=== PATIENT | male | born 1980 | race African-American/Black ===

== ENCOUNTER 2017-08-24 03:35 | Emergency (ER) | payer SELFPAY ==
[2017-08-24 05:10] LABS: BILIRUBIN,URINE NEGATIVE (NEG); CLARITY,URINE CLEAR; COLOR,URINE AMBER; GLUCOSE,URINE NEGATIVE (NEG); NITRITE,URINE NEGATIVE (NEG); PROTEIN,URINE NEGATIVE (NEG-TRACE)
[2017-08-24 05:25] LABS: BACTERIA,URINE 0 /HPF (0-FEW); RBC,URINE 0 /HPF (0-2); SQUAMOUS EPITHELIAL CELL,UR FEW /LPF; WBC,URINE 0 /HPF (0-4)
== END 2017-08-24 05:52 | disposition home or self-care (01) ==
LOC: ER 03:35
DX: N48.29 Other inflammatory disorders of penis (principal); I10 Essential (primary) hypertension; N43.3 Hydrocele, unspecified
CPT/HCPCS: 76870; 81001; 99285-25

== ENCOUNTER 2019-05-17 19:05 | Emergency (ER) | payer BC ==
[~2019-05-17] VITALS: Ht 185.4 cm; Wt 103.0 kg
[2019-05-17 19:50] LABS: BASO % 1 % (0-3); EOS % 1 % (0-3); HEMATOCRIT 42.3 % (39.0-53.0); LYMPH # 2.3 x10^3/uL (1.0-4.8); LYMPH % 33 % (24-48); MEAN CORPUSCULAR HEMOGLOBIN 34 pg (25-35); MEAN CORPUSCULAR HGB CONC 35 g/dL (31-37); MEAN CORPUSCULAR VOLUME 97 fL (79-100); MONO # 0.8 x10^3/uL (0.0-1.1); MONO % 12 % (0-9); NEUT # 3.7 x10^3/uL (1.8-7.7); NEUT % 54 % (31-73); PLATELET COUNT 252 x10^3/uL (140-400); RED BLOOD COUNT 4.36 x10^6/uL (4.30-5.70); RED CELL DISTRIBUTION WIDTH 12.2 % (11.5-14.5); WHITE BLOOD COUNT 6.8 x10^3/uL (4.0-11.0)
[2019-05-17] MEDS ORDERED: ACETAMINOPHEN 500 MG TABLET PO ONE (20:00)
[2019-05-17] MEDS ORDERED: IV NORMAL SALINE 1000ML BAG 1,000 ML IV ONE (20:00)
[2019-05-17 20:04] LABS: CALCIUM 9.4 mg/dL (8.5-10.1); CREATININE 0.8 mg/dL (0.7-1.3); GFR 128.9; POTASSIUM 3.7 mmol/L (3.5-5.1)
[2019-05-17 20:09] LABS: ALBUMIN 4.1 g/dL (3.4-5.0); ALBUMIN/GLOBULIN RATIO 0.8 (1.0-1.7); MAGNESIUM 1.4 mg/dL (1.8-2.4); TOTAL BILIRUBIN 1.6 mg/dL (0.2-1.0)
[2019-05-17] MEDS ORDERED: MAGNESIUM CHLORIDE ER 64 MG TABLET.ER PO STA (20:21)
--- NOTE | 2019-05-17 20:24 | RAD ---
Single view chest dated 05/17/2019: No comparison available. Clinical Indication: Shortness of breath. Findings: Single upright portable exam of the chest was performed. Heart size and mediastinal contours are within normal limits given technique. The lungs are clear without evidence of focal consolidation. Vascular interstitium is within normal limits. Impression:: Negative portable chest. Electronically signed by: Barak Madrigal MD (05/17/2019 8:21 PM) [facility]
--- NOTE | 2019-05-17 20:32 | PHYS DOC ---
Past Medical History Past Medical History: Anxiety, Hypertension Past Surgical History: No Surgical History Alcohol Use: Occasionally Drug Use: None Adult General Chief Complaint Chief Complaint: RAPID HEART RATE HPI HPI Patient is a 39 year old male who presents with rapid heart rate. He is a heavy drinker he drinks at least 4 beers a day if not more he has felt his heart racing intermittently for the last several days now. He has not drink in over 24 hours she has trouble with insomnia he also has issues with blood pressure he just got put on nifedipine recently he is also send a Proventil he denies other drug use no chest pain just early no shortness of breath either just sometimes feels like her heart is racing he does have anxiety and stress with work as well In the emergency room heart rate initially was 125 it came down to 108-109 after IV fluids and Ativan he said he was feeling much better I reevaluated him and he looked much better too blood pressure 154/84 at 2013 Review of Systems Review of Systems Constitutional: Denies fever or chills [] Eyes: Denies change in visual acuity, redness, or eye pain [] HENT: Denies nasal congestion or sore throat [] R Musculoskeletal: Denies back pain or joint pain [] Integument: Denies rash or skin lesions [] Neurologic: Denies headache, focal weakness or sensory changes [] Endocrine: Denies polyuria or polydipsia [] All other systems were reviewed and found to be within normal limits, except as documented in this note. Current Medications Current Medications Current Medications Medications (Trade) Dose Ordered Sig/Mona Start Time Stop Time Status Last Admin Dose Admin Acetaminophen (Tylenol) 1,000 mg 1X ONCE 05/17/19 20:00 05/17/19 20:01 DC 05/17/19 20:04 1,000 MG Lorazepam (Ativan Inj) 2 mg 1X ONCE 05/17/19 20:00 05/17/19 20:01 DC 05/17/19 20:05 2 MG Magnesium Chloride (Mag Delay) 64 mg 1X STAT 05/17/19 20:21 05/17/19 20:22 UNV Sodium Chloride 1,000 ml @ 1,000 mls/hr 1X ONCE 05/17/19 20:00 05/17/19 20:59 05/17/19 20:04 1,000 MLS/HR Allergies Allergies Allergies Coded Allergies Type Severity Reaction Last Updated Verified No Known Drug Allergies 05/17/19 No Physical Exam Physical Exam Constitutional: Well developed, well nourished, no acute distress, non-toxic appearance. [] HENT: Normocephalic, atraumatic, bilateral external ears normal, oropharynx moist, no oral exudates, nose normal. [] Eyes: PERRLA, EOMI, conjunctiva normal, no discharge. [] Neck: Normal range of motion, no tenderness, supple, no stridor. [] Cardiovascular: Mild tachycardia no murmurs noted Lungs & Thorax: Bilateral breath sounds clear to auscultation [] Abdomen: Bowel sounds normal, soft, no tenderness, no masses, no pulsatile masses. [] Skin: Warm, dry, no erythema, no rash. [] Back: No tenderness, no CVA tenderness. [] Extremities: No tenderness, no cyanosis, no clubbing, ROM intact, no edema. [] Neurologic: Alert and oriented X 3, normal motor function, normal sensory function, no focal deficits noted. [] Psychologic: Affect normal, judgement normal, mood normal. [] Current Patient Data Vital Signs Vital Signs Date Time Temp Pulse Resp B/P (MAP) Pulse Ox O2 Delivery O2 Flow Rate FiO2 05/17/19 19:12 98.3 117 23 179/90 (119) 98 Room Air 98.3 Lab Values Laboratory Tests Test 05/17/19 19:23 White Blood Count 6.8 x10^3/uL (4.0-11.0) Red Blood Count 4.36 x10^6/uL (4.30-5.70) Hemoglobin 15.0 g/dL (13.0-17.5) Hematocrit 42.3 % (39.0-53.0) Mean Corpuscular Volume 97 fL (79-100) Mean Corpuscular Hemoglobin 34 pg (25-35) Mean Corpuscular Hemoglobin Concent 35 g/dL (31-37) Red Cell Distribution Width 12.2 % (11.5-14.5) Platelet Count 252 x10^3/uL (140-400) Neutrophils (%) (Auto) 54 % (31-73) Lymphocytes (%) (Auto) 33 % (24-48) Monocytes (%) (Auto) 12 % (0-9) H Eosinophils (%) (Auto) 1 % (0-3) Basophils (%) (Auto) 1 % (0-3) Neutrophils # (Auto) 3.7 x10^3/uL (1.8-7.7) Lymphocytes # (Auto) 2.3 x10^3/uL (1.0-4.8) Monocytes # (Auto) 0.8 x10^3/uL (0.0-1.1) Eosinophils # (Auto) 0.0 x10^3/uL (0.0-0.7) Basophils # (Auto) 0.0 x10^3/uL (0.0-0.2) Sodium Level 134 mmol/L (136-145) L Potassium Level 3.7 mmol/L (3.5-5.1) Chloride Level 95 mmol/L (98-107) L Carbon Dioxide Level 29 mmol/L (21-32) Anion Gap 10 (6-14) Blood Urea Nitrogen 8 mg/dL (8-26) Creatinine 0.8 mg/dL (0.7-1.3) Estimated GFR (Cockcroft-Gault) 128.9 BUN/Creatinine Ratio 10 (6-20) Glucose Level 124 mg/dL (70-99) H Calcium Level 9.4 mg/dL (8.5-10.1) Magnesium Level 1.4 mg/dL (1.8-2.4) L Total Bilirubin 1.6 mg/dL (0.2-1.0) H Aspartate Amino Transferase (AST) 39 U/L (15-37) H Alanine Aminotransferase (ALT) 24 U/L (16-63) Alkaline Phosphatase 76 U/L (46-116) Troponin I Quantitative < 0.017 ng/mL (0.000-0.055) Total Protein 9.0 g/dL (6.4-8.2) H Albumin 4.1 g/dL (3.4-5.0) Albumin/Globulin Ratio 0.8 (1.0-1.7) L Thyroid Stimulating Hormone (TSH) 5.715 uIU/mL (0.358-3.74) H Ethyl Alcohol Level < 10 mg/dL (0-10) Laboratory Tests 05/17/19 19:23 Laboratory Tests 05/17/19 19:23 EKG EKG []Sinus tach rate 124 no acute ischemic changes noted QTC 435 interpreted by me at the time of encounter Radiology/Procedures Radiology/Procedures [] Impressions: dings: Single upright portable exam of the chest was performed. Heart size and mediastinal contours are within normal limits given technique. The lungs are clear without evidence of focal consolidation. Vascular interstitium is within normal limits. Impression:: Negative portable chest. Electronically signed by: Barak Madrigal MD (05/17/2019 8:21 PM) [facility] DICTATED and SIGNED BY: BARAK MADRIGAL MD DATE: 05/17/192020 Course & Med Decision Making Course & Med Decision Making Pertinent Labs and Imaging studies reviewed. (See chart for details) []Lab interpretation magnesium was a little low TSH was actually a little high for that would not explain the symptoms. Magnesium was repleted. In summary this is a 39-year-old male with history of heavy alcohol use as well as hypertension presenting with heart palpitations that have sinus tachycardia likely related to alcohol effect as well as stress TSH was a little high recommended follow-up for this likely not the etiology of his symptoms today. Prescription for Librium will be provided return precautions discussed follow-up with doctor next week for recheck I think is okay for discharge home Dragon Disclaimer Dragon Disclaimer This electronic medical record was generated, in whole or in part, using a voice recognition dictation system. Departure Departure Impression: Primary Impression: Sinus tachycardia Disposition: HOME, SELF-CARE Condition: STABLE Referrals: NO PCP (PCP) KALEIGH DANIEL MD May 17, 2019 20:32
[2019-05-17] MEDS ORDERED: LORA2TAB89 PO (20:34)
[2019-05-17 20:43] VITALS: BP 152/83
--- NOTE | 2019-05-18 06:08 | EKG ---
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
== END 2019-05-17 20:57 | disposition home or self-care (01) ==
LOC: ER 19:05
DX: R00.0 Tachycardia, unspecified (principal); I10 Essential (primary) hypertension; F41.9 Anxiety disorder, unspecified
CPT/HCPCS: 36415; 71045; 80053; 83735; 84443; 84484; 85025; 93005; 96374; 99285; G0480; J2060; J7030

== ENCOUNTER 2021-03-13 13:28 | Emergency (ER) | payer BC ==
[~2021-03-13] VITALS: Ht 185.4 cm; Wt 104.5 kg
[~2021-03-13 13:28] MED LIST: LORA2TAB89 PO
--- NOTE | 2021-03-13 14:07 | PHYS DOC ---
Past Medical History Past Medical History: Anxiety, Hypertension Additional Past Medical Histor: "RACING HEART" Past Surgical History: No Surgical History Smoking Status: Never Smoker Alcohol Use: Occasionally Drug Use: None General Adult EDM: Chief Complaint: Palpitations HPI: HPI: Patient is a 40 year old male presents the emergency department complaining of chest palpitations, patient states she was seen at urgent care a month ago and was told that his palpitations are from anemia, patient states that they have not gone away since. Patient states he does not have a primary care physician but does go to a local clinic. Patient denies smoking cigarettes, states he does drink alcohol occasionally last beer was 3 days ago, denies any illicit drug use. Patient states she does take lisinopril and metoprolol for blood pressure at home. Patient denies chest pain, chest congestion or cough, recent fever chills, nausea, vomiting, or diarrhea. Patient denies any other physical complaints or physical concerns. Review of Systems: Review of Systems: 14 body systems of review of systems have been reviewed. See HPI for pertinent positives and negative responses, otherwise all other systems are negative, nonpertinent or noncontributory. Constitutional: Negative except as outlined in HPI above. Skin: Negative except as outlined in HPI above. Eyes: Negative except as outlined in HPI above. HENT: Negative except as outlined in HPI above. Respiratory: Negative except as outlined in HPI above. Cardiovascular: Negative except as outlined in HPI above. GI: Negative except as outlined in HPI above. : Negative except as outlined in HPI above. Musculoskeletal: Negative except as outlined in HPI above. Integument: Negative except as outlined in HPI above. Neurologic: Negative except as outlined in HPI above. Endocrine: Negative except as outlined in HPI above. Lymphatic: Negative except as outlined in HPI above. Psychiatric: Negative except as outlined in HPI above. Heart Score: C/O Chest Pain: No Risk Factors: Risk Factors: DM, Current or recent (<one month) smoker, HTN, HLP, family history of CAD, obesity. Risk Scores: Score 0 - 3: 2.5% MACE over next 6 weeks - Discharge Home Score 4 - 6: 20.3% MACE over next 6 weeks - Admit for Clinical Observation Score 7 - 10: 72.7% MACE over next 6 weeks - Early Invasive Strategies Allergies: Allergies: Allergies Coded Allergies Type Severity Reaction Last Updated Verified No Known Drug Allergies 05/17/19 No Physical Exam: PE: Constitutional: Well developed, well nourished, no acute distress, non-toxic appearance. 40-year-old male in no apparent distress. HENT: Normocephalic, atraumatic. Eyes: Conjunctiva normal, no discharge. Neck: Normal range of motion, no stridor. Cardiovascular: No cyanosis appreciated, distal cap refill less than 2 seconds. Heart sounds S1-S2, tachycardic heart rate during examination. Lungs & Thorax: Patient is in no respiratory distress, no audible adventitious lung sounds appreciated. Lung sounds clear to auscultate all lung wild. Abdomen: Nontender, no abnormalities noted. Skin: Warm, dry, no erythema, no rash. Back: No tenderness, no deformities. Extremities: No tenderness, no cyanosis, no clubbing, ROM intact, no edema. Neurologic: Alert and oriented X 3, normal motor function, normal sensory function, no focal deficits noted. Psychologic: Affect normal, judgement normal, mood normal. Current Patient Data: Vital Signs: Vital Signs Date Time Temp Pulse Resp B/P (MAP) Pulse Ox O2 Delivery O2 Flow Rate FiO2 03/13/21 13:38 98.8 115 20 127/88 (106) 99 Room Air 98.8 EKG: EKG: EKG performed at 1337 by ED nursing staff shows heart rate 119 bpm sinus tachycardia without other ectopy, [place] interval 0.116, QTc interval 0.414, no acute STEMI, no ACS, no acute ischemia appreciated, EKG interpreted by ED attending physician Dr. Ibrahim. Radiology/Procedures: Radiology/Procedures: PATIENT: LATONYA CALDWELL ACCOUNT: [id number] : 1980 LOCATION: ER AGE: 40 SEX: M EXAM STATUS: PRE ER ORD. PHYSICIAN: AUGIE LEMUS APRN REASON: chest pain PROCEDURE: CHEST AP ONLY INDICATION: Reason: chest pain / Spl. Instructions: / History: COMPARISON: April 2019 FINDINGS: Single view of chest obtained. Cardiac silhouette is similar to prior. No definite new region of focal consolidation or edema. No gross osseous destructive lesion. IMPRESSION: * No focal airspace consolidation. Electronically signed by: Westley Rebolledo MD (03/13/2021 3:06 PM) [id number] DICTATED and SIGNED BY: WESTLEY REBOLLEDO MD DATE: 03/13/21 [id number] Course & Med Decision Making: Course & Med Decision Making Pertinent Labs and Imaging studies reviewed. (See chart for details) 38-year-old male, vital signs reviewed, presents emergency department complaining of chest palpitations over the past month. Physical examination was unremarkable, a cardiorespiratory work-up was initiated. After period of time reexamination of patient and further investigation of tachycardia, patient does reveal he is an alcoholic, had actually quit drinking 3 days ago and has had palpitations today. Discussed with patient symptoms most likely alcohol withdrawal, will order banana bag and Ativan. After period of time, patient heart rate below 100, discussed with patient drinking cessation, patient states he does want to stop but will seek care outside of the ER. Discussed with patient strict follow-up with primary care for ongoing treatment of drinking cessation, strict return to ER precautions. Discuss with the patient all findings and diagnostic testing as well as the need to follow-up with their primary care provider for further evaluation and treatment or return to the ED if any new or worsening symptoms. Strict return precautions were also discussed at length, the patient voiced understanding and agreement with the discharge planning. The patient was nontoxic in appearance, in no apparent distress, and hemodynamically stable at the time of disposition. Dragon Disclaimer: Dragon Disclaimer: This electronic medical record was generated, in whole or in part, using a voice recognition dictation system. Departure Departure Impression: Primary Impression: Heart palpitations Additional Impressions: Alcoholism Alcohol withdrawal syndrome Qualified Codes: F10.230 - Alcohol dependence with withdrawal, uncomplicated Disposition: 01 HOME / SELF CARE / HOMELESS Condition: GOOD Referrals: NO PCP (PCP) Patient Instructions: Alcohol Withdrawal Additional Instructions: You were seen today in the emergency department for increased heart rate, you were worried about anemia, there were no signs of anemia. As we discussed your symptoms are related to your alcohol withdrawal syndrome. As we discussed please follow-up with your primary care physician for ongoing treatment and help with alcohol cessation. Thank you for visiting our Emergency Department. It was a pleasure taking care of you today in the emergency department and we appreciate you trusting us with your care. If any additional problems come up don't hesitate to return to visit us. Please follow up with your primary care provider so they can plan additional care if needed and know about the problem that you had. If symptoms worsen come back to the Emergency Department. Any concerning symptoms that start such as chest pain, shortness of air, weakness or numbness on one side of the body, running high fevers or any other concerning symptoms return to the ER. EMERGENCY DEPARTMENT GENERAL DISCHARGE INSTRUCTIONS Thank you for coming to [facility] Emergency Department (ED) today and trusting us with you care. We trust that you had a positive experience in our Emergency Department. If you wish to speak to the department management, you may call the Director at [phone]. YOUR FOLLOW UP INSTRUCTIONS ARE FOLLOWS: 1. Do you have a private Doctor? If you do not have a private doctor, please ask for a resource list of physicians or clinics that may be able to assist you with follow up care. 2. The Emergency Physicain has interpreted your x-rays. The X-Ray specialist will also review them. If there is a change in the findings, you will be notified in 48 hours when at all possible. 3. A lab test or culture has been done, your results will be reviewed and you will be notified if you need a change in treatment. ADDITIONAL INSTRUCTIONS AND INFORMATION: 1. Your care today has been supervised by a physician who is specially trained in emergency care. Many problems require more than one evaluation for a complete diagnosis and treatment. We recommend that you schedule your follow up appointment as recommended to ensure complete treatment of you illness or injury. If you are unable to obtain follow up care and continue to have a problem, or if your condition worsens, we recommend that you return to the ED. 2. We are not able to safely determine your condition over the phone nor are we able to give sound medical advice over the phone. For these safety reasons, if you call for medical advice we will ask you to come to the ED for further evaluation. 3. If you have any questions regarding these discharge instructions please call the ED at [phone]. SAFETY INFORMATION: In the interest of safety, wellness, and injury prevention; we encourage you to wear your sealbelt, if you smoke; quite smoking, and we encourage family to use a protective helmet for bicycling and other sporting events that present an increased risk for head injury. IF YOUR SYMPTOMS WORSEN OR NEW SYMPTOMS DEVELOP, OR YOU HAVE CONCERNS ABOUT YOUR CONDITION; OR IF YOUR CONDITION WORSENS WHILE YOU ARE WAITING FOR YOUR FOLLOW UP APPOINTMENT; EITHER CONTACT YOUR PRIMARY CARE DOCTOR, THE PHYSICIAN WHOSE NAME AND NUMBER YOU WERE GIVEN, OR RETURN TO THE ED IMMEDIATELY. AUGIE LEMUS APRN Mar 13, 2021 14:07
[2021-03-13 14:41] LABS: BASO % 0 % (0-3); EOS % 0 % (0-3); HEMATOCRIT 43.6 % (39.0-53.0); HEMOGLOBIN 15.3 g/dL (13.0-17.5); LYMPH # 2.1 x10^3/uL (1.0-4.8); LYMPH % 25 % (24-48); MEAN CORPUSCULAR HEMOGLOBIN 35 pg (25-35); MEAN CORPUSCULAR HGB CONC 35 g/dL (31-37); MEAN CORPUSCULAR VOLUME 99 fL (79-100); MONO # 0.9 x10^3/uL (0.0-1.1); MONO % 10 % (0-9); NEUT # 5.6 x10^3/uL (1.8-7.7); NEUT % 65 % (31-73); PLATELET COUNT 336 x10^3/uL (140-400); RED BLOOD COUNT 4.41 x10^6/uL (4.30-5.70); RED CELL DISTRIBUTION WIDTH 12.1 % (11.5-14.5); WHITE BLOOD COUNT 8.6 x10^3/uL (4.0-11.0)
[2021-03-13 14:51] LABS: CALCIUM 9.1 mg/dL (8.5-10.1); CREATININE 1.2 mg/dL (0.7-1.3); GFR 80.3; POTASSIUM 4.2 mmol/L (3.5-5.1)
[2021-03-13 14:57] LABS: ALBUMIN 3.7 g/dL (3.4-5.0); ALBUMIN/GLOBULIN RATIO 0.8 (1.0-1.7); TOTAL BILIRUBIN 1.3 mg/dL (0.2-1.0); TOTAL PROTEIN 8.6 g/dL (6.4-8.2)
--- NOTE | 2021-03-13 15:08 | RAD ---
INDICATION: Reason: chest pain / Spl. Instructions: / History: COMPARISON: April 2019 FINDINGS: Single view of chest obtained. Cardiac silhouette is similar to prior. No definite new region of focal consolidation or edema. No gross osseous destructive lesion. IMPRESSION: * No focal airspace consolidation. Electronically signed by: Ramon Adams MD (03/13/2021 3:06 PM) [id number]
[2021-03-13] MEDS ORDERED: IV NORMAL SALINE 1000ML BAG 1,000 ML IV ONE (15:30)
--- NOTE | 2021-03-13 15:35 | EKG ---
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
[2021-03-13] MEDS ORDERED: MULTIVIT INFUSN,ADULT 4,VIT K 10 ML, THIAMINE INJ 100 MG, FOLIC ACID INJ 1 MG in IV NOR... IV ONE (16:00)
[2021-03-13 18:06] VITALS: BP 140/90
== END 2021-03-13 19:27 | disposition home or self-care (01) ==
LOC: ER 13:28
DX: F10.230 Alcohol dependence with withdrawal, uncomplicated (principal); R00.2 Palpitations; F41.9 Anxiety disorder, unspecified; I10 Essential (primary) hypertension; Y90.9 Presence of alcohol in blood, level not specified
CPT/HCPCS: 36415; 71045; 80053; 84484; 85025; 93005; 96365; 96366; 99285; J3411; J3490; J7030

== ENCOUNTER 2021-10-24 04:47 | Emergency (ER) | payer BC ==
[~2021-10-24] VITALS: Ht 185.4 cm; Wt 104.5 kg
[2021-10-24] MEDS ORDERED: IV NORMAL SALINE 1000ML BAG 1,000 ML IV ONE ×2 (06:15→06:45)
[2021-10-24 06:35] LABS: BASO % 0 % (0-3); EOS % 0 % (0-3); HEMATOCRIT 43.4 % (39.0-53.0); LYMPH # 2.4 x10^3/uL (1.0-4.8); LYMPH % 29 % (24-48); MEAN CORPUSCULAR HEMOGLOBIN 32 pg (25-35); MEAN CORPUSCULAR HGB CONC 35 g/dL (31-37); MEAN CORPUSCULAR VOLUME 93 fL (79-100); MONO # 0.7 x10^3/uL (0.0-1.1); MONO % 8 % (0-9); NEUT # 5.3 x10^3/uL (1.8-7.7); NEUT % 63 % (31-73); PLATELET COUNT 359 x10^3/uL (140-400); RED BLOOD COUNT 4.68 x10^6/uL (4.30-5.70); RED CELL DISTRIBUTION WIDTH 12.8 % (11.5-14.5); WHITE BLOOD COUNT 8.5 x10^3/uL (4.0-11.0)
[2021-10-24 06:43] LABS: CALCIUM 9.9 mg/dL (8.5-10.1); CREATININE 0.8 mg/dL (0.7-1.3); GFR 127.7; POTASSIUM 3.2 mmol/L (3.5-5.1)
[2021-10-24 06:58] LABS: ALBUMIN 3.9 g/dL (3.4-5.0); ALBUMIN/GLOBULIN RATIO 0.8 (1.0-1.7); TOTAL BILIRUBIN 1.4 mg/dL (0.2-1.0); TOTAL PROTEIN 9.1 g/dL (6.4-8.2)
--- NOTE | 2021-10-24 07:00 | RAD ---
EXAM: XR CHEST 1V 10/24/2021 6:32 AM CLINICAL INDICATION: Tachycardia COMPARISON: Chest radiograph 03/13/2021 TECHNIQUE: AP upright view of the chest FINDINGS: The heart and mediastinum are normal. Lungs are well-expanded and clear. No consolidatio n, pleural effusion, or pneumothorax. Pulmonary vascularity is normal. The thoracic skeleton is int act. IMPRESSION: Normal chest radiograph. Electronically signed by: Radha Garcia MD (10/24/2021 6:58 AM) [facility]
--- NOTE | 2021-10-24 07:01 | PHYS DOC ---
Past Medical History Past Medical History: Anxiety, Hypertension Additional Past Medical Histor: "RACING HEART" Past Surgical History: No Surgical History Smoking Status: Never Smoker Alcohol Use: Occasionally Drug Use: None Adult General Chief Complaint Chief Complaint: HYPERTENSION HPI HPI The patient is a 41-year-old male with a history of alcohol abuse who presents for evaluation of high blood pressure, rapid heart rate and insomnia. Patient states he could not sleep at all overnight and noticed that his heart was racing. Associated nausea with 1 episode of nonbloody vomiting. No associated fevers, upper respiratory congestion/rhinorrhea, cough, sore throat, shortness of breath or chest pain of any kind, abdominal pain of any kind, flank pain, midline back pain, dysuria, hematuria, polyuria or oliguria, changes in bowel habits. Patient is alert and pleasantly and appropriately interactive and in no acute distress. He is not obviously tremulous. He denies use of any substances aside from alcohol. Review of Systems Review of Systems A 12 point review of systems was completed and was negative except where noted in HPI above. Current Medications Current Medications Current Medications Medications (Trade) Dose Ordered Sig/Mona Start Time Stop Time Status Last Admin Dose Admin Amlodipine Besylate (Norvasc) 10 mg 1X ONCE 10/24/21 06:15 10/24/21 06:16 DC 10/24/21 06:19 10 MG Lorazepam (Ativan Inj) 1 mg 1X ONCE 10/24/21 07:45 10/24/21 07:46 DC 10/24/21 07:47 1 MG Sodium Chloride 1,000 ml @ 1,000 mls/hr 1X ONCE 10/24/21 06:45 10/24/21 07:44 DC 10/24/21 06:48 1,000 MLS/HR Allergies Allergies Allergies Coded Allergies Type Severity Reaction Last Updated Verified No Known Drug Allergies 05/17/19 No Physical Exam Physical Exam Middle-aged male appearing nontoxic and in no acute distress. Head is normocephalic and atraumatic. Neck is supple and nontender. Oropharynx is moist. Lungs are clear to auscultation at all stations. There is a normal S1 and S2 without rubs or gallops and capillary refill is appropriate, less than 2 seconds globally. Abdomen is soft, nontender and nondistended. Skin is warm and dry without cyanosis, clubbing or edema. Psychiatrically, the patient demonstrates appropriate mood and affect and is alert. Evaluation of the extremities reveals BUEs and BLEs neurovascularly intact distally with strength 5 out of 5, sensation intact light touch in all nerve distributions, radial, DP and PT pulses 2+ and equal bilaterally, capillary refill less than 2 seconds, hands and feet warm and well-perfused. No dependent peripheral edema distally. No calf tenderness swelling bilaterally. Homans test is negative bilaterally. Current Patient Data Vital Signs Vital Signs Date Time Temp Pulse Resp B/P (MAP) Pulse Ox O2 Delivery O2 Flow Rate FiO2 10/24/21 06:22 126 174/103 (126) 100 Room Air 10/24/21 04:57 98.0 20 98.0 Lab Values Laboratory Tests Test 10/24/21 05:03 10/24/21 06:30 White Blood Count 8.5 x10^3/uL (4.0-11.0) Red Blood Count 4.68 x10^6/uL (4.30-5.70) Hemoglobin 15.0 g/dL (13.0-17.5) Hematocrit 43.4 % (39.0-53.0) Mean Corpuscular Volume 93 fL (79-100) Mean Corpuscular Hemoglobin 32 pg (25-35) Mean Corpuscular Hemoglobin Concent 35 g/dL (31-37) Red Cell Distribution Width 12.8 % (11.5-14.5) Platelet Count 359 x10^3/uL (140-400) Neutrophils (%) (Auto) 63 % (31-73) Lymphocytes (%) (Auto) 29 % (24-48) Monocytes (%) (Auto) 8 % (0-9) Eosinophils (%) (Auto) 0 % (0-3) Basophils (%) (Auto) 0 % (0-3) Neutrophils # (Auto) 5.3 x10^3/uL (1.8-7.7) Lymphocytes # (Auto) 2.4 x10^3/uL (1.0-4.8) Monocytes # (Auto) 0.7 x10^3/uL (0.0-1.1) Eosinophils # (Auto) 0.0 x10^3/uL (0.0-0.7) Basophils # (Auto) 0.0 x10^3/uL (0.0-0.2) Sodium Level 127 mmol/L (136-145) L Potassium Level 3.2 mmol/L (3.5-5.1) L Chloride Level 84 mmol/L (98-107) L Carbon Dioxide Level 26 mmol/L (21-32) Anion Gap 17 (6-14) H Blood Urea Nitrogen 9 mg/dL (8-26) Creatinine 0.8 mg/dL (0.7-1.3) Estimated GFR (Cockcroft-Gault) 127.7 BUN/Creatinine Ratio 11 (6-20) Glucose Level 141 mg/dL (70-99) H Calcium Level 9.9 mg/dL (8.5-10.1) Total Bilirubin 1.4 mg/dL (0.2-1.0) H Aspartate Amino Transferase (AST) 52 U/L (15-37) H Alanine Aminotransferase (ALT) 29 U/L (16-63) Alkaline Phosphatase 81 U/L (46-116) Troponin I High Sensitivity 10 ng/L (4-75) Total Protein 9.1 g/dL (6.4-8.2) H Albumin 3.9 g/dL (3.4-5.0) Albumin/Globulin Ratio 0.8 (1.0-1.7) L Thyroid Stimulating Hormone (TSH) 1.445 uIU/mL (0.358-3.74) Ethyl Alcohol Level 89 mg/dL (0-10) H Urine Opiates Screen Neg (NEG) Urine Methadone Screen Neg (NEG) Urine Barbiturates Neg (NEG) Urine Phencyclidine Screen Neg (NEG) Urine Amphetamine/Methamphetamine Neg (NEG) Urine Benzodiazepines Screen Neg (NEG) Urine Cocaine Screen Neg (NEG) Urine Cannabinoids Screen Neg (NEG) Urine Ethyl Alcohol Pos (NEG) Laboratory Tests 10/24/21 05:03 Laboratory Tests 10/24/21 05:03 EKG EKG Sinus rhythm, rate 130, no acute ST elevation or depression, MA 106, QRS 86, QTc 454, EP interpretation. Nonischemic tracing, intervals appropriate. Radiology/Procedures Radiology/Procedures No acute cardiopulmonary process per EP interpretation. Course & Med Decision Making Course & Med Decision Making 41-year-old gentleman presenting in a degree of alcohol withdrawal. Large work- up sent initially because patient was not honest with me about his drinking, but low suspicion for non-withdrawal etiology aced on overall scenario. On chart review, patient is noted to have presented multiple times in the past for alc ohol withdrawal symptoms. When I confronted him with this, he admitted that he is a daily drinker. He would only admit to "1 shot and 1 big beer" a night and admits that he did not have as much alcohol as usual last night. IV fluids and Ativan dose given. If work-up is reassuring, and tachycardia resolves, anticipate likely discharge home to follow-up closely with primary care. Patient understands and agrees. 0900: Patient resting comfortably in no acute distress on serial reassessments. Heart rate dramatically improved, as is blood pressure, after benzodiazepines, fluids and amlodipine here in the emergency department. Labs generally benign. Have had the PAT team worker in to talk to the patient about his alcohol abuse and to provide resources for outpatient treatment. He is still somewhat precontemplative regarding alcohol cessation. No longer clinically withdrawing. Stable for discharge home. All questions answered. Patient understands that if he feels worse instead of better or develops other new symptoms of concern that he should return to the emergency department immediately for reevaluation. Dragon Disclaimer Dragon Disclaimer This electronic medical record was generated, in whole or in part, using a voice recognition dictation system. Departure Departure Impression: Primary Impression: Alcohol withdrawal syndrome Disposition: 01 HOME / SELF CARE / HOMELESS Condition: IMPROVED Patient Instructions: Alcohol Withdrawal Additional Instructions: Follow-up very closely with your primary care doctor in the office in the next 2 to 4 days for a reevaluation of your symptoms and a discussion of next best steps in care. Drink lots of fluids to stay hydrated and get plenty of rest. Please follow up to get help with your drinking and for counseling support as we have discussed with you at this visit. Return to the emergency department right away for worsening symptoms of any kind or with any other new symptoms of concern. Problem Qualifiers Primary Impression: Alcohol withdrawal syndrome Complication of substance-induced condition: uncomplicated Qualified Codes: F10.230 - Alcohol dependence with withdrawal, uncomplicated SHEKHAR GARDNER MD Oct 24, 2021 07:01
[2021-10-24 07:46] LABS: BARBITURATES NEG (NEG); BENZODIAZEPINES NEG (NEG); CANNABINOIDS NEG (NEG); COCAINE NEG (NEG); METHADONE NEG (NEG); OPIATES NEG (NEG); PHENCYCLIDINE NEG (NEG)
[2021-10-24 07:47] LABS: AMPHETAMINE/METHAMPHETAMINE NEG (NEG)
[2021-10-24 09:19] VITALS: BP 136/65
--- NOTE | 2021-10-25 00:57 | EKG ---
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
== END 2021-10-24 09:29 | disposition home or self-care (01) ==
LOC: ER 04:47
DX: F10.239 Alcohol dependence with withdrawal, unspecified (principal); I10 Essential (primary) hypertension; F41.9 Anxiety disorder, unspecified; Y90.4 Blood alcohol level of 80-99 mg/100 ml
CPT/HCPCS: 36415; 71045; 80053; 80307; 84443; 84484; 85025; 93005; 96361; 96374; 96376; 99285; G0480; J2060; J7030